=== PATIENT | female | born 1995 | race Hispanic/Latino ===

== ENCOUNTER 2022-06-17 10:10 | Emergency (ER) | payer BC, OTHER ==
[~2022-06-17] VITALS: Ht 165.1 cm; Wt 61.2 kg
[~2022-06-17 10:10] MED LIST: [UNRECOGNIZED DRUG - OTHER] PO
[2022-06-17 10:52] VITALS: BP 106/64
[2022-06-17] MEDS ORDERED: IOPAMIDOL 370 MG/ML 100 ML INFUS..BTL INJ ONE (11:53)
[2022-06-17] MEDS ORDERED: AMOXICILLIN875 MG PO (13:15)
[2022-06-17] MEDS ORDERED: PREDNISONE20 MG PO (13:16)
== END 2022-06-17 13:29 | disposition home or self-care (01) ==
LOC: FSED 10:15
DX: R42 Dizziness and giddiness (principal); H83.01 Labyrinthitis, right ear; R55 Syncope and collapse; R07.9 Chest pain, unspecified; E66.9 Obesity, unspecified
CPT/HCPCS: 71260; 80048; 81025; 83518; 85025; 85379; 87400; 93005; 99284; Q9967